=== PATIENT | female | born 2000 | race Two or more races ===

== ENCOUNTER 2021-05-07 12:03 | Emergency (ER) | payer SELFPAY ==
[2021-05-07 12:10] VITALS: BP 123/85; PULSE 88; RESP 18; TEMP 36.6; O2SAT 100; BMI 32.1
[2021-05-07 12:56] VITALS: BP 109/76; PULSE 78; RESP 18; TEMP 36.9; O2SAT 99
--- NOTE | 2021-05-07 13:04 | ED_ITS ---
HPI - General Adult General Chief complaint: General Medical Stated complaint: possible alcohol poisioning Time Seen by Provider: 05/07/21 13:04 Source: patient Mode of arrival: ambulatory Limitations: no limitations History of Present Illness HPI narrative: THIS IS A PLEASANT 20 YEARS OLD OF FEMALE PRESENTED TO THE EMERGENCY DEPARTMENT WITH A CHIEF COMPLAINT OF NAUSEA VOMITING STATES THAT LAST NIGHT SHE WAS DRINKING A LOT Onset (ago): day(s) (1 DAY) Radiation: non-radiation Severity: moderate Pain Consistency: constant Associated symptoms: denies other symptoms Related Data Allergies Allergy/AdvReac Type Severity Reaction Status Date / Time bee pollen [BEE STINGS] Allergy Unknown UNKNOWN Verified 05/07/21 12:09 SEASONAL ALLERGIES Allergy Unknown NASAL Uncoded 06/24/20 19:08 CONGESTION, POST NASAL DRIP Review of Systems Review of Systems: Yes all other systems are reviewed and are negative Constitutional: Constitutional: Reports no additional constitutional complaints Eyes: Eyes: Reports no additional eye complaints Cardiovascular: Cardiovascular: Denies chest pain Respiratory: Respiratory: Reports no additional respiratory complaints Gastrointestinal: Gastrointestinal: Reports abdominal pain Integumentary/Breasts: Skin/Breast: Reports system reviewed and no additional complaints, except as docu [facility] Past Medical History Attestation statement: The following information was validated with the patient. [facility] Narrative: PATIENT DENIES ANY MAJOR MEDICAL PROBLEM Medical History Acid reflux Asthma Surgical History H/O tympanostomy Hx of tonsillectomy Social History Social History Advance Directives: Yes Advance Directives Information Provided: Yes Advance Directives on File: No Patient : No Physical Exam Vital Signs: Vital Signs: Last Vital Signs Temp 98.0 F 05/07/21 16:00 Pulse 80 05/07/21 16:00 Resp 16 05/07/21 16:00 BP 105/72 05/07/21 16:00 Pulse Ox 99 05/07/21 16:00 Body Mass Index 32.1 Const: Other: SHE LOOKS NONTOXIC, IN NO DISTRESS Nutritional Appearance: average body habitus Orientation/consciousness: oriented to person, oriented to place, oriented to time and patient oriented x3 HENMT: Head: Yes normal to inspection Face and sinus: Yes normal facial exam Mouth: Normal oral and palatal mucosa present Neck: Neck: Yes normal visual inspection and Yes full ROM Chest: Chest palpation & inspection: normal inspection of the chest Resp: Effort & Inspection: normal respiratory effort Auscultation: clear to auscultation bilaterally Cardio: Jugular venous distension: no JVD Rate: regular rate Rhythm: regular rhythm GI: Inspection: Yes normal to inspection Palpation (GI): Soft to palpation, nontender, no guarding and not rigid Skin: General skin exam: no rashes or lesions noted, elasticity normal and turgor normal Lesions: no lesions Rashes: no rashes Neuro: General: oriented to person, oriented to place, oriented to time and patient oriented x3 Course Reevaluation(s) Reevaluation #1: tolerated po well no vomiting,feels much better,labs OK,smiling OK to dc Medical Decision Making Lab Data Lab results reviewed: Yes I reviewed the patient's lab results. Result diagrams: 05/07/21 13:19 05/07/21 13:48 Labs: Lab Results 05/07/21 05/07/21 Range/Units 13:19 13:48 WBC 12.4 H (4.8-10.8) X10*3/uL RBC 4.31 (4.20-5.50) X10*6/uL Hgb 12.6 (12.0-16.0) g/dl Hct 37.5 (37-47) % MCV 87.0 (80-98) fL MCH 29.2 (27.0-33.0) pg MCHC 33.6 (31.0-35.0) g/dl RDW 13.2 (11.0-16.0) % Plt Count 244 (160-400) X10*3/uL MPV 10.9 (9.4-12.3) fL Immature Gran % (Auto) 0.4 (0.0-0.4) % Neut % (Auto) 81.2 H (45-73) % Lymph % (Auto) 11.3 L (20-40) % Lynn % (Auto) 6.7 (2-11) % Eos % (Auto) 0.2 (0-4) % Baso % (Auto) 0.2 (0-2) % Lymph # (Auto) 1.4 (1.2-4.9) X10*3/uL Lynn # (Auto) 0.8 (0.1-1.2) X10*3/uL Eos # (Auto) 0.0 (0.0-0.4) X10*3/uL Baso # (Auto) 0.0 (0.0-0.2) X10*3/uL Abs Immat Gran (auto) 0.05 H (0.00-0.03) X10*3/uL Absolute Neuts (auto) 10.0 H (2.0-8.3) X10*3/uL Absolute Nucleated RBC 0.000 (0.0-0.012) X10*3/uL Nucleated RBC % (auto) 0.0 (0.0-0.2) /100WBC Sodium 141 (135-145) mmol/L Potassium 4.1 (3.3-5.1) mmol/L Chloride 106 (96-108) mmol/L Carbon Dioxide 26 (22-29) mmol/L Anion Gap 13 (12-20) BUN 7 L (9-16) mg/dL Creatinine 0.66 (0.5-1.4) mg/dL Estim Creat Clear Calc 125.6 Estimated GFR > 60 Random Glucose 93 (60-115) mg/dL Calcium 9.4 (8.4-10.2) mg/dL Total Bilirubin 0.9 (0.0-1.0) mg/dL AST 21 (5-31) U/L ALT 21 (0-31) U/L Alkaline Phosphatase 88 (39-117) U/L Total Protein 7.3 (6.5-8.0) g/dL Albumin 4.4 (3.5-5.0) g/dL Beta HCG, Quant < 2 mIU/mL Discharge Plan Discharge Clinical Impression: Vomiting Patient Disposition: Home, Self-Care Instructions: Dehydration (ED), Acute Nausea and Vomiting (ED) Interventions: ED Discharge Assessment Last Done: 05/07/21 16:47 Discharge Date/Time: 05/07/21 16:49
[2021-05-07] MEDS: 0.9 % Sodium Chloride 1,000 ML 999 ML IVCONT ×2 (13:22)
[2021-05-07 13:24] LABS: Basophils Percent Auto 0.2 % (0-2); Eosinophils Percent Auto 0.2 % (0-4); Hematocrit 37.5 % (37-47); Hemoglobin 12.6 g/dl (12.0-16.0); Imm Gran Abs Auto 0.05 X10*3/uL (0.00-0.03); Imm Gran Pct Auto 0.4 % (0.0-0.4); Lymphocytes Absolute Auto 1.4 X10*3/uL (1.2-4.9); Lymphocytes Percent Auto 11.3 % (20-40); MANUAL DIFF FLAG NO; Mean Corpuscular HGB Conc 33.6 g/dl (31.0-35.0); Mean Corpuscular Hemoglobin 29.2 pg (27.0-33.0); Mean Platelet Volume 10.9 fL (9.4-12.3); Monocytes Absolute Auto 0.8 X10*3/uL (0.1-1.2); Monocytes Percent Auto 6.7 % (2-11); Neutrophils Percent Auto 81.2 % (45-73); Platelet Count 244 X10*3/uL (160-400); Red Blood Count 4.31 X10*6/uL (4.20-5.50); Red Cell Distribution Width 13.2 % (11.0-16.0); White Blood Count 12.4 X10*3/uL (4.8-10.8)
[2021-05-07 14:08] VITALS: BP 102/63; PULSE 75; RESP 18; TEMP 36.7; O2SAT 100
[2021-05-07 14:20] LABS: Alanine Aminotransferase 21 U/L (0-31); Albumin Level 4.4 g/dL (3.5-5.0); Alkaline Phosphatase 88 U/L (39-117); Anion Gap 13 (12-20); Aspartate Amino Transferase 21 U/L (5-31); Bilirubin Total 0.9 mg/dL (0.0-1.0); Blood Urea Nitrogen 7 mg/dL (9-16); Calcium 9.4 mg/dL (8.4-10.2); Carbon Dioxide 26 mmol/L (22-29); Chloride 106 mmol/L (96-108); Creatinine Clr Calc Pharmacy 125.6; Estimated Glomerular Filt Rate > 60; Glucose Random 93 mg/dL (60-115); Potassium 4.1 mmol/L (3.3-5.1); Sodium 141 mmol/L (135-145); Total Protein 7.3 g/dL (6.5-8.0)
[2021-05-07 14:35] LABS: HCG Quantitative < 2 mIU/mL
[2021-05-07 16:00] VITALS: BP 105/72; PULSE 80; RESP 16; TEMP 36.7; O2SAT 99
== END 2021-05-07 16:49 | disposition home or self-care (01) ==
PROVIDERS: Emergency Provider Emergency Medicine; PCP Pediatrics
DX: R11.2 Nausea with vomiting, unspecified (principal)
CPT/HCPCS: 36415; 80053; 84702; 85025; 96361; 96374; 99284; J2405

== ENCOUNTER 2022-06-28 23:20 | Emergency (ER) | payer OTHER, SELFPAY ==
--- NOTE | ~2022-06-28 | CT_ITS ---
EXAMINATION: CT ABDOMEN AND PELVIS WITH CONTRAST CLINICAL INFORMATION: Abdominal pain COMPARISON: None TECHNIQUE: Multidetector volumetric images were obtained from the superior aspect of the liver through the pubic symphysis following administration 85 mL of Omnipaque 350 intravenous contrast. Sagittal and coronal reformatted images were obtained on the technologist's workstation. Oral contrast: No This CT examination was performed using dose optimization techniques as appropriate, variously including the following: *Automated exposure control *Adjustment of mA and/or kV according to patient size (this includes techniques or standardized protocols for targeted exams where dose is matched to indication/reason for exam; i.e. extremities or head) *Use of iterative reconstruction technique DLP: 692 mGy-cm FINDINGS: LUNG BASES: The visualized lung bases are unremarkable. LIVER, GALLBLADDER, AND BILIARY TREE: The liver is normal in size, shape, and attenuation. No focal hepatic lesion or biliary ductal dilatation is present. The gallbladder is contracted with no evidence of radiopaque gallstones, gallbladder wall thickening, or obvious pericholecystic inflammatory changes. PANCREAS: Unremarkable. SPLEEN: Unremarkable. ADRENAL GLANDS: Unremarkable. KIDNEYS AND URETERS: The kidneys are normal in size, shape, and attenuation. No hydronephrosis or hydroureter. Right lower pole 0.6 cm calculus is 11 cm from the posterior axillary line. This measures 835 Hounsfield units. BLADDER: Unremarkable. GASTROINTESTINAL TRACT: The small and large bowel are unremarkable. The appendix is unremarkable. ABDOMINAL WALL: No significant hernia is appreciated. LYMPH NODES: Normal. VASCULAR: Unremarkable. PELVIC VISCERA: Anteverted uterus. IUD in place. Peripherally enhancing left adnexal cyst measuring 2.2 cm. OSSEOUS STRUCTURES: No acute or suspicious osseous abnormality. CT/CT abdomen pelvis w IV con IMPRESSION: Right lower pole 0.6 cm calculus. No hydronephrosis. No inflammatory change. Fleischner guidelines were followed.
[2022-06-29 00:20] VITALS: BP 114/64; PULSE 79; RESP 18; TEMP 37.1; O2SAT 100; BMI 34.0
[2022-06-29 00:50] LABS: Hematocrit 33.5 % (37.0-47.0); Mean Corpuscular HGB Conc 32.8 g/dl (31.0-35.0); Mean Corpuscular Hemoglobin 26.6 pg (27.0-33.0); Mean Corpuscular Volume 80.9 fL (80.0-98.0); Mean Platelet Volume 10.2 fL (9.4-12.3); Platelet Count 270 X10*3/uL (160-400); Red Blood Count 4.14 X10*6/uL (4.20-5.50); Red Cell Distribution Width 13.8 % (11.0-16.0); White Blood Count 9.3 X10*3/uL (4.8-10.8)
[2022-06-29 01:05] LABS: Alanine Aminotransferase 12 U/L (0-31); Albumin Level 4.4 g/dL (3.5-5.0); Alkaline Phosphatase 83 U/L (39-117); Anion Gap 17 (12-20); Aspartate Amino Transferase 15 U/L (5-31); Bilirubin Direct < 0.2 mg/dL (0.0-0.5); Bilirubin Total 0.4 mg/dL (0.0-1.0); Blood Urea Nitrogen 15 mg/dL (9-16); Calcium 9.3 mg/dL (8.4-10.2); Carbon Dioxide 23 mmol/L (22-29); Chloride 105 mmol/L (96-108); Creatinine Clr Calc Pharmacy 133.3; Estimated Glomerular Filt Rate > 60; Glucose Random 90 mg/dL (60-115); Lipase 15 U/L (8-78); Potassium 4.1 mmol/L (3.3-5.1); Sodium 141 mmol/L (135-145); Total Protein 7.2 g/dL (6.5-8.0)
[2022-06-29 01:48] VITALS: BP 115/73; PULSE 76; RESP 16; TEMP 36.9; O2SAT 99
[2022-06-29 02:11] LABS: Appearance Urine Clear; Color Urine Yellow; Glucose Urine UA Negative (Negative); Leukocyte Esterase Urine Trace (Negative); Nitrite Urine Negative (Negative); Specific Gravity - Urine 1.025 (1.005-1.025); UMIC TRIGGER UACC YES; Urine Blood Negative (Negative); Urine Ketones Negative (Negative); Urine Protein Negative (Neg-Trace)
[2022-06-29 02:16] LABS: Bacteria Urine None Seen (None Seen); Hyaline Casts Urine 0-2 /LPF (0-2); RBC Urine 0-2 /HPF (0-2); Squamous Epithelial Cell Urine 0-2 /HPF (0-2); WBC Urine 0-5 /HPF (0-5)
--- NOTE | 2022-06-29 02:17 | ED.ABDPAIN ---
HPI - Abdominal Pain General Chief Complaint: Abdominal Pain Stated Complaint: fever, sharp body pain Time Seen by Provider: 06/29/22 02:16 History of Present Illness HPI narrative: Patient is a 22-year-old female presents today with having abdominal pain flank pain it has been ongoing for the last 3-5 days. Patient been seen at another ED had labs and urine drawn were negative. Patient does not think she is . No nausea no vomiting. Positive pain to the flank area. Positive low-grade fever. No pain on urination. No vaginal discharge. Patient is sexually active 1 partner. No cough no congestion upper respiratory symptoms. No chest pain or shortness of breath. Related Data Previous Rx's Medication Instructions Recorded ibuprofen 400 mg tablet 400 mg PO Q6H PRN pain #20 tabs 06/29/22 Allergies Allergy/AdvReac Type Severity Reaction Status Date / Time bee pollen [BEE STINGS] Allergy Unknown UNKNOWN Verified 05/07/21 12:09 SEASONAL ALLERGIES Allergy Unknown NASAL Uncoded 06/24/20 19:08 CONGESTION, POST NASAL DRIP Review of Systems Review of Systems Positive bilateral flank pain positive abdominal pain No nausea no vomiting No cough no congestion or upper respiratory symptoms Yes all other systems are reviewed and are negative [facility] Past Medical History Attestation statement: The following information was validated with the patient. Medical History Acid reflux Asthma Surgical History H/O tympanostomy Hx of tonsillectomy Social History Social History Alcohol intake: current Alcohol intake frequency: holidays/special occasions only Alcohol type: hard liquor Patient Tobacco Use Status: Never used Tobacco Substance Use Type: Marijuana Substance Use Frequency: Occasionally Last Used Substance: Days (ago) Any prior treatment program specific to substance use: No Advance Directives: No Physical Exam ED Vital Signs: Vital Signs - 24 hr 06/29/22 00:20 06/29/22 01:48 Temperature 98.8 F 98.5 F Pulse Rate 79 76 Respiratory Rate 18 16 Blood Pressure 114/64 115/73 Pulse Oximetry 100 99 Oxygen Delivery Method Room Air Room Air BMI result Body Mass Index 34.0 Appearance: Alert. Oriented X3. No acute distress. Eyes: Pupils equal, round and reactive to light. ENT: Pharynx normal. Neck: Normal inspection. Neck supple. No lymph nodes noted. No crepitus CVS: Normal heart rate and rhythm. Pulses normal. Normal S1 and S2 Respiratory: No respiratory distress. Breath sounds normal. No Wheezing. No rales Abdomen: Soft and nontender. No rigidity. No distention. good BS x4 Skin: Skin warm and dry. Normal skin color. Normal skin turgor. Extremities: No lower extremity edema. Neurovascular intact to all extremities. No Lacerations. No Rash Neuro: Oriented X 3. No motor deficit. No sensory deficit. Moving all extermities. No slurred speech MDM - Abdominal Pain MDM Narrative Medical decision making narrative: CT scan of the abdomen pelvis showed no evidence of kidney stone. No obstruction or abscess no perforation. Urine showed no signs of infection. test was negative. White count was normal chemistries normal will discharge patient Medical Records Attestation: I reviewed the patient's medical records. Lab Data Attestation: I reviewed the patient's lab results. Result diagrams: 06/29/22 00:44 06/29/22 00:44 Labs: Lab Results 06/29/22 06/29/22 06/29/22 Range/Units 00:44 00:44 02:03 WBC 9.3 (4.8-10.8) X10*3/uL RBC 4.14 L (4.20-5.50) X10*6/uL Hgb 11.0 L (12.0-16.0) g/dl Hct 33.5 L (37.0-47.0) % MCV 80.9 (80.0-98.0) fL MCH 26.6 L (27.0-33.0) pg MCHC 32.8 (31.0-35.0) g/dl RDW 13.8 (11.0-16.0) % Plt Count 270 (160-400) X10*3/uL MPV 10.2 (9.4-12.3) fL Absolute Nucleated RBC 0.000 (0.0-0.012) X10*3/uL Nucleated RBC % (auto) 0.0 (0.0-0.2) /100WBC Sodium 141 (135-145) mmol/L Potassium 4.1 (3.3-5.1) mmol/L Chloride 105 (96-108) mmol/L Carbon Dioxide 23 (22-29) mmol/L Anion Gap 17 (12-20) BUN 15 (9-16) mg/dL Creatinine 0.63 (0.5-1.4) mg/dL Estim Creat Clear Calc 133.3 Estimated GFR > 60 Random Glucose 90 (60-115) mg/dL Calcium 9.3 (8.4-10.2) mg/dL Total Bilirubin 0.4 (0.0-1.0) mg/dL Direct Bilirubin < 0.2 (0.0-0.5) mg/dL AST 15 (5-31) U/L ALT 12 (0-31) U/L Alkaline Phosphatase 83 (39-117) U/L Total Protein 7.2 (6.5-8.0) g/dL Albumin 4.4 (3.5-5.0) g/dL Lipase 15 (8-78) U/L Urine Color Yellow Urine Appearance Clear Urine pH 6.0 (5.0-9.0) Ur Specific [place] 1.025 (1.005-1.025) Urine Protein Negative (Neg-Trace) mg/dL Urine Glucose (UA) Negative (Negative) mg/dL Urine Ketones Negative (Negative) mg/dL Urine Blood Negative (Negative) Urine Nitrite Negative (Negative) Ur Leukocyte Esterase Trace H (Negative) Urine RBC 0-2 (0-2) /HPF Urine WBC 0-5 (0-5) /HPF Ur Squamous Epith Cells 0-2 (0-2) /HPF Urine Bacteria None Seen (None Seen) Hyaline Casts 0-2 (0-2) /LPF Urine Test (NEGATIVE) 06/29/22 Range/Units 02:03 WBC (4.8-10.8) X10*3/uL RBC (4.20-5.50) X10*6/uL Hgb (12.0-16.0) g/dl Hct (37.0-47.0) % MCV (80.0-98.0) fL MCH (27.0-33.0) pg MCHC (31.0-35.0) g/dl RDW (11.0-16.0) % Plt Count (160-400) X10*3/uL MPV (9.4-12.3) fL Absolute Nucleated RBC (0.0-0.012) X10*3/uL Nucleated RBC % (auto) (0.0-0.2) /100WBC Sodium (135-145) mmol/L Potassium (3.3-5.1) mmol/L Chloride (96-108) mmol/L Carbon Dioxide (22-29) mmol/L Anion Gap (12-20) BUN (9-16) mg/dL Creatinine (0.5-1.4) mg/dL Estim Creat Clear Calc Estimated GFR Random Glucose (60-115) mg/dL Calcium (8.4-10.2) mg/dL Total Bilirubin (0.0-1.0) mg/dL Direct Bilirubin (0.0-0.5) mg/dL AST (5-31) U/L ALT (0-31) U/L Alkaline Phosphatase (39-117) U/L Total Protein (6.5-8.0) g/dL Albumin (3.5-5.0) g/dL Lipase (8-78) U/L Urine Color Urine Appearance Urine pH (5.0-9.0) Ur Specific [place] (1.005-1.025) Urine Protein (Neg-Trace) mg/dL Urine Glucose (UA) (Negative) mg/dL Urine Ketones (Negative) mg/dL Urine Blood (Negative) Urine Nitrite (Negative) Ur Leukocyte Esterase (Negative) Urine RBC (0-2) /HPF Urine WBC (0-5) /HPF Ur Squamous Epith Cells (0-2) /HPF Urine Bacteria (None Seen) Hyaline Casts (0-2) /LPF Urine Test NEGATIVE (NEGATIVE) Discharge Plan Discharge Clinical Impression: Abdominal pain Patient Disposition: Home, Self-Care Instructions: Abdominal Pain (ED) Prescriptions: New ibuprofen 400 mg tablet 400 mg PO Q6H PRN (Reason: pain) Qty: 20 0RF Referrals: Physician,Unknown J [Primary Care Provider] -
[2022-06-29 02:27] LABS: Urine Pregnancy NEGATIVE (NEGATIVE)
[2022-06-29 02:28] LABS: UPreg QC Valid YES
[2022-06-29] MEDS: iohexoL 350 MG/ML 100 ML INFUS..BTL 85 ML IV (03:02)
[2022-06-29] MEDS: Ketorolac Tromethamine 30 MG/ML VIAL IVPUSH (03:16)
[2022-06-29] MEDS: 0.9 % Sodium Chloride 1,000 ML 999 ML IV (03:17)
[2022-06-29 04:31] VITALS: BP 110/69; PULSE 79; RESP 14; TEMP 36.4; O2SAT 99
== END 2022-06-29 04:33 | disposition home or self-care (01) ==
PROVIDERS: Emergency Provider Emergency Medicine Emergency Medical Services
DX: R50.9 Fever, unspecified (principal); R10.9 Unspecified abdominal pain; Z79.899 Other long term (current) drug therapy
CPT/HCPCS: 36415; 74177; 80053; 81001; 81025; 82248; 83690; 85027; 96374; 99284; J1885; Q9967

== ENCOUNTER 2024-06-14 08:52 | Emergency (ER) | payer OTHER, SELFPAY ==
--- NOTE | 2024-06-14 | ECG_ITS ---
Test Reason : Tachycardia Blood Pressure : / mmHG Vent. Rate : 109 BPM Atrial Rate : 109 BPM P-R Int : 168 ms QRS Dur : 080 ms QT Int : 330 ms P-R-T Axes : 051 -04 026 degrees QTc Int : 444 ms Sinus tachycardia Otherwise normal ECG No previous ECGs available Referred By: Generic ED Physician Electronically Signed By:KOBE MARIE
--- NOTE | ~2024-06-14 | CT_ITS ---
EXAMINATION: CT ABDOMEN AND PELVIS WITH CONTRAST CLINICAL INFORMATION: Left lower quadrant abdominal pain, diarrhea, rule out diverticulitis, inflammatory bowel disease COMPARISON: CT abdomen and pelvis 06/29/2022 TECHNIQUE: Multidetector volumetric images were obtained from the superior aspect of the liver through the pubic symphysis following administration 85 mL of Omnipaque 350 intravenous contrast. Sagittal and coronal reformatted images were obtained on the technologist's workstation. Oral contrast: No This CT examination was performed using dose optimization techniques as appropriate, variously including the following: *Automated exposure control *Adjustment of mA and/or kV according to patient size (this includes techniques or standardized protocols for targeted exams where dose is matched to indication/reason for exam; i.e. extremities or head) *Use of iterative reconstruction technique DLP: 625 mGy-cm FINDINGS: LUNG BASES: Unremarkable. LIVER AND BILIARY TREE: Unremarkable. GALLBLADDER: Unremarkable. PANCREAS: Unremarkable. SPLEEN: Unremarkable. ADRENAL GLANDS: Unremarkable. KIDNEYS AND URETERS: Inferior pole 8 mm nonobstructing right renal calculus (series 2, image 38). Mild fullness of the right renal pelvis without overt hydronephrosis. GASTROINTESTINAL TRACT: Extensive long segment wall thickening with mucosal hyperemia of the colon throughout. Mild pericolonic fat stranding about the proximal ascending colon. Small bowel unremarkable. No evidence of bowel obstruction. Normal appendix. VASCULAR: Unremarkable LYMPH NODES: Multiple mildly enlarged right lower quadrant mesenteric lymph nodes, measuring up to 1.2 cm in short axis (series 3, image 404). PERITONEUM: No ascites. BLADDER: Mild wall thickening of a partially decompressed urinary bladder. PELVIC VISCERA: Unremarkable. ABDOMINAL AND PELVIC WALL: Unremarkable. OSSEOUS STRUCTURES: No discrete pericolonic fluid collections or fistulous tracts identified. CT/CT abdomen pelvis w IV con IMPRESSION: 1. Pancolitis, which may be infectious or inflammatory in etiology, such as with ulcerative colitis. Multiple mildly enlarged right lower quadrant mesenteric lymph nodes, likely reactive. No pericolonic fluid collections or fistulous tracts identified. 2. Mild wall thickening of a partially decompressed urinary bladder, may be due to underdistention or cystitis. Correlate with urinalysis. 3. Inferior pole 8 mm nonobstructing right renal calculus. Electronically signed by: Rigo Trujillo MD 06/14/2024 03:00 PM EDT
[2024-06-14 08:56] VITALS: BP 108/73; PULSE 114; RESP 16; TEMP 38.2; O2SAT 100; BMI 26.4
[2024-06-14 09:43] VITALS: BP 110/64; PULSE 110; RESP 16; TEMP 38.4; O2SAT 100
[2024-06-14 09:47] LABS: MANUAL DIFF FLAG NO
[2024-06-14 10:03] LABS: Alanine Aminotransferase 11 U/L (0-31); Alkaline Phosphatase 85 U/L (39-117); Anion Gap 16 (12-20); Aspartate Amino Transferase 15 U/L (5-31); Bilirubin Total 0.5 mg/dL (0.0-1.0); Blood Urea Nitrogen 7 mg/dL (9-16); Calcium 9.3 mg/dL (8.4-10.2); Carbon Dioxide 19 mmol/L (22-29); Chloride 105 mmol/L (96-108); Creatinine Clr Calc Pharmacy 101.9; Estimated Glomerular Filt Rate > 60; Glucose Random 112 mg/dL (60-115); Potassium 4.3 mmol/L (3.3-5.1); Sodium 136 mmol/L (135-145); Total Protein 7.4 g/dL (6.5-8.0)
[2024-06-14 10:19] LABS: Basophils Percent Auto 0.4 % (0-2); Eosinophils Percent Auto 0.1 % (0-4); Hematocrit 36.4 % (37.0-47.0); Hemoglobin 11.5 g/dl (12.0-16.0); Imm Gran Abs Auto 0.04 X10*3/uL (0.00-0.03); Imm Gran Pct Auto 0.4 % (0.0-0.4); Lymphocytes Absolute Auto 0.6 X10*3/uL (1.2-4.9); Lymphocytes Percent Auto 5.5 % (20-40); Mean Corpuscular HGB Conc 31.6 g/dl (31.0-35.0); Mean Corpuscular Hemoglobin 24.8 pg (27.0-33.0); Mean Corpuscular Volume 78.6 fL (80.0-98.0); Mean Platelet Volume 10.4 fL (9.4-12.3); Monocytes Absolute Auto 0.7 X10*3/uL (0.1-1.2); Monocytes Percent Auto 5.8 % (2-11); Neutrophils Percent Auto 87.8 % (45-73); Platelet Count 211 X10*3/uL (160-400); Red Blood Count 4.63 X10*6/uL (4.20-5.50); Red Cell Distribution Width 15.9 % (11.0-16.0); White Blood Count 11.4 X10*3/uL (4.8-10.8)
[2024-06-14 10:43] LABS: Influenza A PCR NEGATIVE (Negative); Influenza B PCR NEGATIVE (Negative); Resp Syncy Virus RNA Qual PCR NEGATIVE (Negative); SARS COV2 PCR INHOUSE NEGATIVE (Negative)
--- NOTE | 2024-06-14 11:35 | ED.ABDPAIN ---
HPI - Abdominal Pain General Chief Complaint: Upper Respiratory Symptoms Stated Complaint: multiple symptoms Time Seen by Provider: 06/14/24 10:26 Source: patient and family (Sister) Mode of arrival: ambulatory Limitations: no limitations History of Present Illness ED Provider: Dr. Gadiel Dalal HPI narrative: 23-year-old female with a history of asthma, bipolar disorder, kidney stones, who presents emergency department for evaluation of fever, headache, abdominal pain, nausea with no vomiting, diarrhea, lightheadedness and dizziness x3 days. Patient states that she has had watery diarrhea with no blood in the diarrhea, she was moved her bowels 2 to 3 times a day. She states she has had subjective fever and chills. She complains of diffuse abdominal pain. She states she has had very poor food and fluid intake since she has been ill. She states she may have had a similar illness 8 months prior the lasted several days and then resolved without treatment. The patient was not been on antibiotics recently. She denies any recent travel outside of the country. Patient does work in our [employer] here at [facility]. Related Data Previous Rx's ?Medication ?Instructions ?Recorded ibuprofen 400 mg tablet 400 mg PO Q6H PRN pain #20 tabs 06/29/22 levofloxacin 500 mg tablet 500 mg PO DAILY 7 days #7 tabs 06/14/24 metronidazole 500 mg tablet 500 mg PO TID 7 days #21 tabs 06/14/24 ondansetron 4 mg disintegrating 4 mg PO Q6-8H PRN nausea and 06/14/24 tablet vomiting #14 tabs Allergies Allergy/AdvReac Type Severity Reaction Status Date / Time bee pollen [BEE STINGS] Allergy Unknown UNKNOWN Verified 06/14/24 08:58 SEASONAL ALLERGIES Allergy Unknown NASAL Uncoded 06/14/24 08:58 CONGESTION, POST NASAL DRIP Review of Systems Review of Systems Yes all other systems are reviewed and are negative [facility] Past Medical History [facility] Narrative: Social history: She denies tobacco use. She occasionally drinks alcohol. She occasionally smokes marijuana. She works in the [employer] here at [facility] Medical History Acid reflux Asthma Surgical History H/O tympanostomy Hx of tonsillectomy Social History Social History Alcohol intake: current Alcohol intake frequency: holidays/special occasions only Alcohol type: hard liquor Patient Tobacco Use Status: Never used Tobacco Smoked in Last 30 Days: No Use of substances other than those prescribed or required for medical reasons: Yes Substance Use Type: Marijuana Substance Use Frequency: Occasionally Last Used Substance: Days (ago) Advance Directives: No Advance Directives Information Provided: No Physical Exam ED Vital Signs: Vital Signs - 24 hr 06/14/24 08:56 06/14/24 09:43 06/14/24 09:43 Temperature 100.8 F H 101.2 F H Pulse Rate 114 H 110 H Respiratory Rate 16 16 Blood Pressure 108/73 110/64 Pulse Oximetry 100 100 100 Oxygen Delivery Method Room Air Room Air Room Air 06/14/24 13:59 06/14/24 14:03 Temperature 99 F 99 F Pulse Rate 83 Respiratory Rate 17 Blood Pressure 103/63 Pulse Oximetry 97 Oxygen Delivery Method Room Air BMI result Body Mass Index 26.4 Vital signs revealed an elevated heart rate of 110, elevated temperature of 101.2 degrees F, normal blood pressure and O2 saturation. Exam: General: Awake, alert in no distress Head: Normocephalic, atraumatic EENT: PERRL, Lids normal, sclera normal, conjunctiva normal, nose normal , ears normal, throat without erythema or exudates Neck: Supple, no adenopathy Lung: breath sounds symmetric, no wheezing, rales or rhonchi Chest: symmetric movement, nontender Heart: regular rate and rhythm, normal S1, S2 no murmurs or rubs Abdomen: soft, mild to moderate diffuse tenderness, moderate left lower quadrant tenderness, nondistended, normal bowel sounds Back: no vertebral tenderness, no CVAT Extremities: no deformities, moves all extremities symmetrically Neuro: Awake, alert, oriented, normal speech, cranial nerves intact, moves all extremities symmetrically Psych: Pleasant, cooperative Medical Decision Making Medical Decision Making MDM Narrative: 23-year-old female with a history of asthma, bipolar disorder, kidney stones, who presents emergency department for evaluation of fever, headache, abdominal pain, nausea with no vomiting, diarrhea, lightheadedness and dizziness x3 days. Patient has had 2-3 episodes of diarrheal stool per day with no blood in the diarrhea, she has had poor food and fluid intake in his feeling lightheaded and dizzy. Vital signs did reveal elevated heart rate and fever. Patient has diffuse abdominal tenderness with increased tenderness in the left lower quadrant. Patient has not been on antibiotics recently and has had no recent travel. Differential diagnosis: ?Includes but is not limited to diverticulitis, gastroenteritis, pancreatitis, viral syndrome, C difficile colitis, urinary tract infection electrolyte abnormalities, anemia Following evaluation was ordered: CBC, CMP, lipase, quantitative beta-hCG, C difficile panel, GI panel, quantitative beta-hCG, urinalysis, CT scan of the abdomen pelvis with IV contrast, IV insert Patient was initially treated with the following: Normal saline x1 L, Tylenol 975 mg orally, Toradol 15 mg IV, Zofran 4 mg IV Course: 14:02 Patient's laboratory evaluation did reveal slight elevation in white blood cell count with a left shift, microcytic anemia and a low CO2 of 19-otherwise no significant abnormalities. COVID-19, influenza and RSV were negative. Patient is feeling better after the above treatment. CT scan of the abdomen pelvis with IV contrast is pending. Stool testing is pending collection of stool. Lab Data MDM Lab Attestation statement: I reviewed the patient's lab results. My interpretation patient's laboratory evaluation is as follows: Elevated white blood count 37419 with left shift of 87 neutrophils and 5.5 lymphocytes. Microcytic anemia with an H&H of 11.5 and 36.4 with an MCV of 78.6. Low CO2 19, normal BUN and creatinine. Normal LFTs. Normal lipase. COVID-19, influenza and RSV were negative 06/14/24 09:42 06/14/24 09:42 Labs: Lab Results 06/14/24 06/14/24 06/14/24 Range/Units 09:42 14:02 15:32 WBC 11.4 H (4.8-10.8) X10*3/uL RBC 4.63 (4.20-5.50) X10*6/uL Hgb 11.5 L (12.0-16.0) g/dl Hct 36.4 L (37.0-47.0) % MCV 78.6 L (80.0-98.0) fL MCH 24.8 L (27.0-33.0) pg MCHC 31.6 (31.0-35.0) g/dl RDW 15.9 (11.0-16.0) % Plt Count 211 (160-400) X10*3/uL MPV 10.4 (9.4-12.3) fL Immature Gran % (Auto) 0.4 (0.0-0.4) % Neut % (Auto) 87.8 H (45-73) % Lymph % (Auto) 5.5 L (20-40) % [place] % (Auto) 5.8 (2-11) % Eos % (Auto) 0.1 (0-4) % Baso % (Auto) 0.4 (0-2) % Lymph # (Auto) 0.6 L (1.2-4.9) X10*3/uL [place] # (Auto) 0.7 (0.1-1.2) X10*3/uL Eos # (Auto) 0.0 (0.0-0.4) X10*3/uL Baso # (Auto) 0.0 (0.0-0.2) X10*3/uL Abs Immat Gran (auto) 0.04 H (0.00-0.03) X10*3/uL Absolute Neuts (auto) 10.0 H (2.0-8.3) x10*3/uL Absolute Nucleated RBC 0.000 (0.0-0.012) X10*3/uL Nucleated RBC % (auto) 0.0 (0.0-0.2) /100WBC Sodium 136 (135-145) mmol/L Potassium 4.3 (3.3-5.1) mmol/L Chloride 105 (96-108) mmol/L Carbon Dioxide 19 L (22-29) mmol/L Anion Gap 16 (12-20) BUN 7 L (9-16) mg/dL Creatinine 0.72 (0.5-1.4) mg/dL Estim Creat Clear Calc 101.9 Estimated GFR > 60 Random Glucose 112 (60-115) mg/dL Calcium 9.3 (8.4-10.2) mg/dL Total Bilirubin 0.5 (0.0-1.0) mg/dL AST 15 (5-31) U/L ALT 11 (0-31) U/L Alkaline Phosphatase 85 (39-117) U/L Total Protein 7.4 (6.5-8.0) g/dL Albumin 4.0 (3.5-5.0) g/dL Lipase 14 (8-78) U/L Beta HCG, Quant < 2 mIU/mL Urine Color Yellow Urine Appearance Clear Urine pH 5.5 (5.0-9.0) Ur Specific Gray 1.025 (1.005-1.025) Urine Protein Trace (Neg-Trace) mg/dL Urine Glucose (UA) Negative (Negative) mg/dL Urine Ketones Trace (Negative) mg/dL Urine Blood Negative (Negative) Urine Nitrite Negative (Negative) Ur Leukocyte Esterase Negative (Negative) C. difficile Tox B Gene NEGATIVE (Negative) Influenza Type A (PCR) NEGATIVE (Negative) Influenza Type B (PCR) NEGATIVE (Negative) RSV RNA Qual (PCR) NEGATIVE (Negative) SARS-CoV-2 RNA (RT-PCR) NEGATIVE (Negative) Radiology Impression Discussion of test interpretation with radiology: I have reviewed the radiologist's reading. Radiologist Impression: EXAMINATION: CT ABDOMEN AND PELVIS WITH CONTRAST COMPARISON: CT abdomen and pelvis 06/29/2022 FINDINGS: KIDNEYS AND URETERS: Inferior pole 8 mm nonobstructing right renal calculus (series 2, image 38). Mild fullness of the right renal pelvis without overt hydronephrosis. GASTROINTESTINAL TRACT: Extensive long segment wall thickening with mucosal hyperemia of the colon throughout. Mild pericolonic fat stranding about the proximal ascending colon. Small bowel unremarkable. No evidence of bowel obstruction. Normal appendix. VASCULAR: Unremarkable LYMPH NODES: Multiple mildly enlarged right lower quadrant mesenteric lymph nodes, measuring up to 1.2 cm in short axis (series 3, image 404). PERITONEUM: No ascites. BLADDER: Mild wall thickening of a partially decompressed urinary bladder. PELVIC VISCERA: Unremarkable. ABDOMINAL AND PELVIC WALL: Unremarkable. OSSEOUS STRUCTURES: No discrete pericolonic fluid collections or fistulous tracts identified. IMPRESSION: 1. Pancolitis, which may be infectious or inflammatory in etiology, such as with ulcerative colitis. Multiple mildly enlarged right lower quadrant mesenteric lymph nodes, likely reactive. No pericolonic fluid collections or fistulous tracts identified. 2. Mild wall thickening of a partially decompressed urinary bladder, may be due to underdistention or cystitis. Correlate with urinalysis. 3. Inferior pole 8 mm nonobstructing right renal calculus. Electronically signed by: Rigo Trujillo MD 06/14/2024 03:00 PM EDT RP Dictated By: Rigo Trujillo MD Medications Administered Discontinued Medications Generic Name Dose Route Start Last Admin Trade Name Nina PRN Reason Stop Dose Admin Acetaminophen 975 mg 06/14/24 11:02 06/14/24 12:07 Acetaminophen 325 Mg Tablet PO 06/14/24 11:03 975 mg ONCE ONE Administration Sodium Chloride 1,000 mls @ 999 mls/hr 06/14/24 11:00 06/14/24 13:33 Ns IV 06/14/24 12:00 Infused .Q1H1M STA Infusion Sodium Chloride 1,000 mls @ 999 mls/hr 06/14/24 15:29 06/14/24 15:35 Ns IV 06/14/24 16:29 999 mls/hr .Q1H1M STA Administration Iohexol 100 ml 06/14/24 12:29 06/14/24 12:29 Iohexol 350 Mg/Ml 100 Ml Infus..Btl IV 06/14/24 12:30 85 ml ONCE ONE Administration Ketorolac Tromethamine 15 mg 06/14/24 11:00 06/14/24 12:07 Ketorolac Tromethamine 15 Mg/Ml Vial IVPUSH 06/14/24 11:01 15 mg ONCE STA Administration Ketorolac Tromethamine 15 mg 06/14/24 15:29 06/14/24 15:34 Ketorolac Tromethamine 15 Mg/Ml Vial IVPUSH 06/14/24 15:30 15 mg ONCE STA Administration Ondansetron HCl 4 mg 06/14/24 11:00 06/14/24 12:07 Ondansetron Hcl 4 Mg/2 Ml Vial IVPUSH 06/14/24 11:01 4 mg ONCE ONE Administration Discharge Plan Discharge Clinical Impression: Pancolitis, Diarrhea, Fever, Nausea Patient Disposition: Home, Self-Care Additional Instructions: The CT scan of your abdomen pelvis revealed a corley colitis (inflammation and swelling of your entire colon). Pancolitis can be caused by a viral or bacterial infection and sometimes can be caused by inflammatory bowel disease. I am going to treat you for possible bacterial infection the following to medications: Levaquin (levofloxacin) 500 mg, 1 pill daily for 7 days Flagyl (metronidazole) 500 mg 3 times a day for 7 days. After you complete these prescriptions you should not exercise for 2-3 months since Levaquin can sometimes cause a softening of the Achilles tendon which can then be injured by exercise. Take Zofran ODT 4 mg pills, 1 pill dissolved in your mouth every 8 hours as needed for nausea and vomiting. Take ibuprofen 200 mg pills, 2 pills every 6 hours as needed for pain or fever. Take Tylenol (acetaminophen) 500 mg pills, 2 pills every 6 hours as needed for pain or fever. Follow-up with your doctor in 2 days. I also want you to follow-up with our lime mixer tender on-call so they can re-evaluate you to determine if you need a colonoscopy to evaluate for inflammatory bowel disease. Please return to the emergency department if your symptoms get worse or if you develop any symptoms that are concerning to you. Please see the work note You do have a incidental finding on the CT scan. You have an 8 mm nonobstructing stone in the right kidney. There was nothing to do about this at this time but in the future you might get pain if this stone leaves the kidney and gets in the ureter (the tube that connects the bladder to the kidney) Please see the work note. CT abdomen pelvis w IV con IMPRESSION: 1. Pancolitis, which may be infectious or inflammatory in etiology, such as with ulcerative colitis. Multiple mildly enlarged right lower quadrant mesenteric lymph nodes, likely reactive. No pericolonic fluid collections or fistulous tracts identified. 2. Mild wall thickening of a partially decompressed urinary bladder, may be due to underdistention or cystitis. Correlate with urinalysis. 3. Inferior pole 8 mm nonobstructing right renal calculus. Electronically signed by: Rigo Trujillo MD 06/14/2024 03:00 PM EDT Dictated By: Rigo Trujillo MD Prescriptions: New levofloxacin 500 mg tablet 500 mg PO DAILY 7 Days Qty: 7 0RF metronidazole 500 mg tablet 500 mg PO TID 7 Days Qty: 21 0RF ondansetron 4 mg tablet,disintegrating 4 mg PO Q6-8H PRN (Reason: nausea and vomiting) Qty: 14 0RF No Action ibuprofen 400 mg tablet 400 mg PO Q6H PRN (Reason: pain) Qty: 20 0RF Referrals: Orlando,Aditya, MD [Physician] - 2 weeks (Fever with pancolitis treated with Flagyl and Levaquin) Stand Alone Forms: Work/School Release Print Language: Monegasque
[2024-06-14] MEDS: 0.9 % Sodium Chloride 1,000 ML 999 ML IV ×2 (12:00→15:35)
[2024-06-14 12:05] LABS: Lipase 14 U/L (8-78)
[2024-06-14] MEDS: Acetaminophen 325 MG TABLET 975 MG PO (12:07)
[2024-06-14] MEDS: ondansetron HCL 4 MG/2 ML VIAL IVPUSH (12:07)
[2024-06-14] MEDS: Ketorolac Tromethamine 15 MG/ML VIAL IVPUSH ×2 (12:07→15:34)
[2024-06-14 12:15] LABS: HCG Quantitative < 2 mIU/mL
--- NOTE | 2024-06-14 12:20 | PC.NURSE ---
20g L wrist placed. Pt medicated per MAR and IVF initiated. Pt given a hat and instructions for stool sample.
[2024-06-14] MEDS: iohexoL 350 MG/ML 100 ML INFUS..BTL IV (12:29)
[2024-06-14 13:59] VITALS: TEMP 37.2
[2024-06-14 14:03] VITALS: BP 103/63; PULSE 83; RESP 17; TEMP 37.2; O2SAT 97
[2024-06-14 14:14] LABS: Appearance Urine Clear; Color Urine Yellow; Glucose Urine UA Negative (Negative); Leukocyte Esterase Urine Negative (Negative); Nitrite Urine Negative (Negative); PH 5.5 (5.0-9.0); Specific Gravity - Urine 1.025 (1.005-1.025); Urine Blood Negative (Negative); Urine Ketones Trace mg/dL (Negative); Urine Protein Trace mg/dL (Neg-Trace)
[2024-06-14 16:44] LABS: CDiff Gene PCR NEGATIVE (Negative)
[2024-06-14 17:11] VITALS: BP 108/66; PULSE 86; RESP 19; TEMP 37.2; O2SAT 100
[2024-06-14] MEDS: metroNIDAZOLE 500 MG TABLET PO (17:13)
[2024-06-14] MEDS: levoFLOXacin 500 MG TABLET PO (17:13)
[2024-06-14 17:33] VITALS: BP 108/66; PULSE 86; RESP 19; TEMP 37.2; O2SAT 100
== END 2024-06-14 17:34 | disposition home or self-care (01) ==
PROVIDERS: Emergency Provider Emergency Medicine Emergency Medical Services; PCP Internal Medicine
DX: K52.9 Noninfective gastroenteritis and colitis, unspecified (principal); R50.9 Fever, unspecified; R11.0 Nausea; R10.32 Left lower quadrant pain; Z03.818 Encounter for observation for suspected exposure to other biological agents ruled out; J45.909 Unspecified asthma, uncomplicated; Z87.442 Personal history of urinary calculi
CPT/HCPCS: 0241U; 74177; 80053; 81003; 83690; 84702; 85025; 87493; 93005; 96361; 96374; 96375; 96376; 99284; 99285; J1885; J2405; Q9967

== ENCOUNTER 2025-04-01 16:11 | Outpatient (AMB) | payer OTHER, SELFPAY ==
--- NOTE | 2025-04-01 16:12 | MHC.OFFWIV ---
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 - The issue began yesterday morning after the patient attempted to flush her ears in the shower. - The patient did not dilute the solution used for ear cleaning, which may have contributed to the blockage. - The patient reports a sensation of blockage and pain in the right ear, with no associated fever, cough, or sinus pain. - The patient has a history of recurrent otitis media during childhood, resulting in scarring and increased sensitivity in the ears. - The patient experiences seasonal allergies and takes cetirizine for management. Physical Exam Physical Exam General: Cooperative, healthy appearing, comfortable, no acute distress and well developed Orientation: Patient oriented x3 Limitations: No limitations Head: Normal to inspection Ears: hearing reduced bilaterally, TM's blocked by cerumen bilaterally Face and sinus: Normal facial exam Neck: Normal visual inspection and Yes full ROM Respiratory: Normal respiratory effort and able to speak in complete sentences. No cough. Skin: No rashes or lesions noted Neuro: Patient oriented x3 Extremities: normal to inspection [facility] Medical History Acid reflux Asthma Surgical History H/O tympanostomy Hx of tonsillectomy Social History Alcohol intake: current Alcohol intake frequency: holidays/special occasions only Alcohol type: hard liquor Patient Tobacco Use Status: Never used Tobacco Substance Use Type: Marijuana Review of Systems Const All systems reviewed & are unremarkable except as noted in HPI and below Physical Exam Vital Signs: Last Vital Signs Temp 98.3 F 04/01/25 16:16 Pulse 79 04/01/25 16:16 BP 124/62 04/01/25 16:16 Pulse Ox 98 04/01/25 16:16 Oxygen Delivery Method Room Air 04/01/25 16:16 BMI result Body Mass Index 37.6 Office Procedures Cerumen Removal Details: Unable to clear wax completely from both ears, despite curette and irrigation.. From which ear canal was the cerumen removed: bilateral Removal: irrigation and otoscope w/curette Notes: patient tolerated procedure well and no complications [id number] Irrigation/Lavage Assessment & Plan Assessment & Plan (1) Bilateral impacted cerumen: Code(s): H61.23 - Impacted cerumen, bilateral Plan: Patient was informed and verbally consented to the use of an ambient scribe for clinic note documentation during this visit. 1. Impacted Cerumen - Performed bilateral ear irrigation without success. - Recommend use of Debrox drops, five drops in each ear weekly, allowing it to sit for 15 minutes to help dissolve the wax and come back in 7 days for us to try again. 2. History Of Recurrent Otitis Media - Monitor for any signs of infection or complications due to ear wax impaction. 3. Seasonal Allergic Rhinitis - Continue current management with cetirizine for allergy symptoms. Medications: Discontinued ibuprofen Discontinued Reason: Patient no longer taking 400 mg PO Q6H PRN 20 tabs 0RF pain metronidazole Discontinued Reason: Patient no longer taking 500 mg PO TID 7 days 21 tabs 0RF levofloxacin Discontinued Reason: Patient no longer taking 500 mg PO DAILY 7 days 7 tabs 0RF ondansetron Discontinued Reason: Patient no longer taking 4 mg PO Q6-8H PRN 14 tabs 0RF nausea and vomiting Coding Level of Care Code New Pt Level 3 (28558) Diagnoses Bilateral impacted cerumen H61.23 CPT Codes Office Procedure - CPT: 70048-[place] Irrigation/Lavage ([id number])
[2025-04-01 16:16] VITALS: BP 124/62; PULSE 79; TEMP 36.8; O2SAT 98; BMI 37.6
--- OUTSIDE RECORDS SUMMARY | 2025-04-01 18:44 | XMS_ITS ---
Author Name [facility] Organization Unknown History of Medication Use Medication Directions Dispensed Refills Start Date End Date Stat us amoxicillin-clavula lobo (AUGMENTIN) 875-125 MG per tablet Take 1 tablet by mouth 2 (two) times a day. 10/25/2023 11/02/2023 active Problems Problem Status Onset Date Problem Type Date of Resoluti on Source Tonsillitis active EncounterDiagnosisAct [facility]CT Encounter for laboratory testing for COVID-19 virus active EncounterDiagnosisAct [facility]CT Encounters Encounter Type Encounter Reason Primary Diagnosis Location Date Ambulatory Acute tonsillitis, unspecified Acute tonsillitis, unspecified Spare Backup 10/25/2023 Care Team Organization Name Specialty Phone Email Start Date End Da te Spare Backup 10/28/2023 Spare Backup NO PCP Primary Care 10/28/2023 Spare Backup PCP Assistant Superintendent For Curriculum 10/28/2023 12/24/2024
== END 2025-04-01 16:39 | disposition home or self-care (01) ==
PROVIDERS: PCP Internal Medicine; Visit Provider Physician Assistant
DX: H61.23 Impacted cerumen, bilateral (principal)

== ENCOUNTER → 2025-04-01 16:11 | Outpatient (BNVA) | payer OTHER, SELFPAY | PROVIDERS: PCP Internal Medicine; Visit Provider Physician Assistant | DX: H61.23 Impacted cerumen, bilateral (principal) | CPT/HCPCS: 69210 ==